=== PATIENT | female | born 1950 | race Caucasian/White ===

== ENCOUNTER 2021-11-29 13:35 | Outpatient (REF) | payer MEDICARE, BC, SELFPAY ==
[2021-11-29 20:57] LABS: Anion Gap 8.7 mmol/L (3-11); BUN 12 mg/dL (7-18); CO2 24.3 mmol/L (21.0-32.0); CREATININE 0.8 mg/dL (0.55-1.02); Calcium 9.2 mg/dL (8.5-10.1); Chloride 104 mmol/L (98-107); Estimated GFR 79.71 (mL/min/1.73m2); Glucose 105 mg/dL (74-106); Sodium 137 mmol/L (136-145)
== END 2021-11-29 13:36 | disposition home or self-care (01) ==
LOC: NCHCN 13:35
PROVIDERS: Visit Provider Family Medicine
DX: E66.3 Overweight (principal)
CPT/HCPCS: 80048

== ENCOUNTER 2024-07-09 16:48 | Outpatient (REF) | payer MEDICARE, BC, SELFPAY ==
[2024-07-09 22:28] LABS: Anion Gap 9.1 mmol/L (3-11); BUN 16 mg/dL (7-18); CO2 26.9 mmol/L (21.0-32.0); CREATININE 0.9 mg/dL (0.55-1.02); Calcium 9.9 mg/dL (8.5-10.1); Calculated LDL 142 mg/dL (<100); Chloride 104 mmol/L (98-107); Cholesterol 222 mg/dL (<200); Estimated GFR 68.35 (mL/min/1.73m2); Glucose 94 mg/dL (74-106); HDL Cholesterol 64 mg/dL (>or=50); Potassium 4.1 mmol/L (3.5-5.1); Sodium 140 mmol/L (136-145); Triglyceride 81 mg/dL (<150)
== END 2024-07-09 16:49 | disposition home or self-care (01) ==
LOC: NCHCN 16:48
PROVIDERS: Visit Provider Family Medicine
DX: Z13.1 Encounter for screening for diabetes mellitus (principal)
CPT/HCPCS: 80048; 80061